=== PATIENT | male | born 1985 | race Caucasian/White ===

== ENCOUNTER 2022-02-21 16:27 | Inpatient (IN) ==
[2022-02-21] MEDS: Norepinephrine 4 MG/254 ML IV.SOLN IVC SCH (22:00)
[2022-02-21] MEDS ORDERED: Naloxone 0.4 MG/ML INJ IVP PRN (22:17)
[2022-02-21] MEDS ORDERED: Azithromycin 500 MG in 0.9 % Sodium Chloride 250 ML IVPB ONE (22:17)
[2022-02-21] MEDS ORDERED: *HR* Norepinephrine 4 MG/4 ML VIAL IVC ONE (22:24)
[2022-02-21] MEDS ORDERED: 0.9 % Sodium Chloride 250 ML ONE (22:25)
[2022-02-21] MEDS ORDERED: Vancomycin (wt based) 1,000 MG VIAL IVPB SCH (23:00)
[2022-02-21 23:12] LABS: Basophils % 0.1 %; Hematocrit 33.7 % (37.5-50.1); Hemoglobin 10.2 g/dL (12.9-16.9); Immature Granulocytes % 0.7 % (0-4); Lymphocytes # 0.7 K/mcL (0.6-4.6); Lymphocytes % 3.5 %; Mean Corpuscular HGB Conc 30.3 g/dL (31.6-35.5); Mean Corpuscular Hemoglobin 27.3 pg (28.0-33.3); Mean Corpuscular Volume 90.3 fL (83.0-100.0); Mean Platelet Volume 9.5 fL (9.4-12.4); Monocytes # 0.3 K/mcL (0.0-1.3); Monocytes % 1.7 %; Neutrophils # 17.5 K/mcL (1.6-8.9); Platelet Count 444 K/mcL (140-400); Red Blood Count 3.73 M/mcL (4.19-5.50); Red Cell Distribution Width 14.6 % (11.5-14.5); White Blood Count 18.6 K/mcL (4.3-11.1)
[2022-02-21 23:16] LABS: VBG Ionized Calcium 1.13 mmol/L (1.15-1.35)
[2022-02-21 23:19] LABS: INR 1.3; Prothrombin Time 14.8 Seconds (9.4-12.1)
[2022-02-21 23:22] LABS: Activated Partial Thrombo Time 31.4 Seconds (26.0-36.0)
[2022-02-21 23:32] LABS: Alanine Aminotransferase 23 Units/L (7-52); Albumin 2.3 g/dL (3.5-5.7); Albumin/Globulin Ratio 0.5 (1.1-2.2); Alkaline Phosphatase 70 Units/L (34-104); Aspartate Amino Transferase 26 Units/L (13-39); BUN/Creatinine Ratio 45 (6-26); Bilirubin,Total 0.3 mg/dL (0.3-1.0); Blood Urea Nitrogen 10 mg/dL (6-20); Calcium 8.1 mg/dL (8.6-10.3); Carbon Dioxide 32 mEq/L (23-29); Chloride 102 mEq/L (98-107); Globulin 4.6 g/dL (2.4-3.5); Glucose 134 mg/dL (70-105); Magnesium 1.8 mg/dL (1.6-2.6); Osmolality,Calculated 289 (280-300); Phosphorous 3.1 mg/dL (2.7-4.5); Potassium 3.1 mEq/L (3.5-5.1); Sodium 139 mEq/L (136-145); Total Protein 6.9 g/dL (6.4-8.9); eGFR For African Americans > 60 (> 60); eGFR For Non-African Americans > 60 (> 60)
[2022-02-21] MEDS ORDERED: Albuterol 2.5 MG/3 ML NEBULIZER IH PRN (23:59)
[2022-02-22] MEDS ORDERED: Potassium Chloride Elixir 20 MEQ/15 ML UDC GTUBE ONE (00:13)
[2022-02-22] MEDS: Norepinephrine 4 MG/254 ML IV.SOLN IVC SCH (00:59)
[2022-02-22] MEDS: Piperacillin/Tazobactam 3.375 GM in 0.9 % Sodium Chloride Mini Bag 100 ML IVPB SCH ×3 (02:00→16:11)
[2022-02-22] MEDS: *HR* Heparin 5,000 UNIT/ML VIAL SQ SCH ×2 (02:17→06:20)
[2022-02-22 04:03] LABS: VBG Ionized Calcium 1.22 mmol/L (1.15-1.35)
[2022-02-22 04:14] LABS: Basophils % 0.1 %; Hematocrit 35.1 % (37.5-50.1); Hemoglobin 10.6 g/dL (12.9-16.9); Immature Granulocytes % 0.8 % (0-4); Lymphocytes # 0.9 K/mcL (0.6-4.6); Mean Corpuscular HGB Conc 30.2 g/dL (31.6-35.5); Mean Corpuscular Hemoglobin 27.7 pg (28.0-33.3); Mean Corpuscular Volume 91.9 fL (83.0-100.0); Mean Platelet Volume 9.7 fL (9.4-12.4); Monocytes # 0.5 K/mcL (0.0-1.3); Monocytes % 2.7 %; Neutrophils # 15.7 K/mcL (1.6-8.9); Platelet Count 438 K/mcL (140-400); Red Blood Count 3.82 M/mcL (4.19-5.50); Red Cell Distribution Width 14.6 % (11.5-14.5); Segmented Neutrophils % 91.4 %; White Blood Count 17.2 K/mcL (4.3-11.1)
[2022-02-22 05:00] LABS: Blood Urea Nitrogen 10 mg/dL (6-20); Carbon Dioxide 32 mEq/L (23-29); Chloride 105 mEq/L (98-107); Glucose 133 mg/dL (70-105); Magnesium 1.8 mg/dL (1.6-2.6); Osmolality,Calculated 293 (280-300); Phosphorous 3.2 mg/dL (2.7-4.5); Potassium 3.9 mEq/L (3.5-5.1); Sodium 141 mEq/L (136-145)
[2022-02-22] MEDS ORDERED: Ipratropium/Albuterol Neb 3 ML IH PRN (07:38)
[2022-02-22] MEDS: Pantoprazole 40 MG VIAL IVP SCH (08:05)
[2022-02-22] MEDS: polyethylene glycoL 3350 17 GM POWD.PACK PO SCH (08:08)
[2022-02-22] MEDS ORDERED: Remdesivir 200 MG in 0.9 % Sodium Chloride 100 ML IVPB ONE (09:03)
[2022-02-22 09:14] LABS: Bilirubin,Urine Negative (Negative); Blood,Urine Negative (Negative); Clarity,Urine Clear (Clear); Color,Urine Yellow (Yellow); Glucose,Urine (UA) Normal (Normal); Ketones,Urine Negative (Negative); Leukocyte Esterase,Urine Negative (Negative); Nitrite,Urine Negative (Negative); Protein,Urine Trace mg/dL (Neg-Trace); Specific Gravity,Urine 1.026 (1.010-1.025); Urobilinogen,Urine Normal (Normal)
[2022-02-22 10:06] LABS: C-Reactive Protein 150 mg/L (Less than 10)
[2022-02-22] MEDS ORDERED: Lidocaine Viscous Oral Soln 15 ML SOLUTION ONE (10:25)
[2022-02-22] MEDS ORDERED: Iopamidol - 370 500 ML MLS IVP ONE ×2 (12:03→14:53)
[2022-02-22] MEDS ORDERED: *HR* Enoxaparin 40 MG/0.4 ML SYRINGE SQ SCH ×2 (14:00→18:00)
[2022-02-22 14:39] LABS: Source of Body Fluid RLL
[2022-02-22 17:18] LABS: Appearance of Body Fluid Cloudy (Clear); Volume of Body Fluid 15 mL
[2022-02-23] MEDS ORDERED: *HR* Heparin 5,000 UNIT/ML VIAL IVP PRN ×2 (02:00)
[2022-02-23] MEDS ORDERED: *HR* Heparin 5,000 UNIT/ML VIAL IVP ONE (02:00)
[2022-02-23] MEDS: Heparin 25,000UNIT/250ML 1/2NS 25,000 UNIT/250 ML IV.SOLN IVC SCH (02:30)
[2022-02-23] MEDS: Piperacillin/Tazobactam 3.375 GM in 0.9 % Sodium Chloride Mini Bag 100 ML IVPB SCH ×4 (02:41→23:02)
[2022-02-23] MEDS: Norepinephrine 4 MG/254 ML IV.SOLN IVC SCH ×2 (02:42→20:19)
[2022-02-23 02:49] LABS: Hematocrit 34.8 % (37.5-50.1); Hemoglobin 10.4 g/dL (12.9-16.9); Mean Corpuscular HGB Conc 29.9 g/dL (31.6-35.5); Mean Corpuscular Hemoglobin 27.2 pg (28.0-33.3); Mean Corpuscular Volume 91.1 fL (83.0-100.0); Mean Platelet Volume 9.5 fL (9.4-12.4); Platelet Count 445 K/mcL (140-400); Red Blood Count 3.82 M/mcL (4.19-5.50); White Blood Count 11.7 K/mcL (4.3-11.1)
[2022-02-23 02:56] LABS: Heparin anti-factor XA UFH < 0.04 IU/mL (0.30-0.70); INR 1.2; Prothrombin Time 13.5 Seconds (9.4-12.1)
[2022-02-23 02:59] LABS: Activated Partial Thrombo Time 31.1 Seconds (26.0-36.0)
[2022-02-23 03:05] LABS: Alanine Aminotransferase 20 Units/L (7-52); Albumin 2.2 g/dL (3.5-5.7); Albumin/Globulin Ratio 0.5 (1.1-2.2); Alkaline Phosphatase 62 Units/L (34-104); Aspartate Amino Transferase 24 Units/L (13-39); BUN/Creatinine Ratio 56 (6-26); Bilirubin,Indirect 0.2 mg/dL (0.0-1.0); Bilirubin,Total 0.2 mg/dL (0.3-1.0); Blood Urea Nitrogen 14 mg/dL (6-20); Calcium 8.4 mg/dL (8.6-10.3); Carbon Dioxide 33 mEq/L (23-29); Chloride 109 mEq/L (98-107); Globulin 4.2 g/dL (2.4-3.5); Glucose 101 mg/dL (70-105); Osmolality,Calculated 307 (280-300); Potassium 3.5 mEq/L (3.5-5.1); Sodium 148 mEq/L (136-145); Total Protein 6.4 g/dL (6.4-8.9); eGFR For African Americans > 60 (> 60); eGFR For Non-African Americans > 60 (> 60)
[2022-02-23 03:21] LABS: Basophils % 0.1 %; Immature Granulocytes % 2.5 % (0-4); Lymphocytes % 16.5 %; Monocytes # 0.7 K/mcL (0.0-1.3); Monocytes % 5.6 %; Neutrophils # 8.9 K/mcL (1.6-8.9); Segmented Neutrophils % 75.3 %
[2022-02-23 03:30] LABS: Magnesium 1.9 mg/dL (1.6-2.6); Phosphorous 3.3 mg/dL (2.7-4.5)
[2022-02-23 03:48] LABS: Ferritin 1253 ng/mL (20-250)
[2022-02-23 04:17] LABS: D-Dimer 14544 ng/mLFEU (0-500)
[2022-02-23 05:30] LABS: VBG Ionized Calcium 1.19 mmol/L (1.15-1.35)
[2022-02-23] MEDS ORDERED: *HR* Enoxaparin 40 MG/0.4 ML SYRINGE SQ SCH (06:00)
[2022-02-23] MEDS: Pantoprazole 40 MG VIAL IVP SCH (07:29)
[2022-02-23] MEDS: Chlorhexidine Rinse 15 ML MOUTHWASH MM SCH ×2 (08:49→20:15)
[2022-02-23] MEDS ORDERED: Potassium Chloride Elixir 20 MEQ/15 ML UDC GTUBE ONE (10:25)
[2022-02-23] MEDS: polyethylene glycoL 3350 17 GM POWD.PACK PO SCH (10:36)
[2022-02-23] MEDS: Remdesivir 100 MG in 0.9 % Sodium Chloride 100 ML IVPB SCH (10:36)
[2022-02-23 11:35] LABS: LDH,Pleural Fluid > 1200 Units/L (No Ref Range); Total Protein,Pleural Fluid < 2.0 g/dL
[2022-02-23] MEDS: predniSONE 10 MG TABLET GTUBE SCH (13:49)
[2022-02-23 14:26] LABS: Appearance of Body Fluid Cloudy (Clear); Volume of Body Fluid 21 mL
[2022-02-23 18:19] LABS: BUN/Creatinine Ratio 48 (6-26); Blood Urea Nitrogen 14 mg/dL (6-20); Carbon Dioxide 33 mEq/L (23-29); Chloride 110 mEq/L (98-107); Glucose 179 mg/dL (70-105); Osmolality,Calculated 309 (280-300); Potassium 3.7 mEq/L (3.5-5.1); Sodium 147 mEq/L (136-145); eGFR For African Americans > 60 (> 60); eGFR For Non-African Americans > 60 (> 60)
[2022-02-23] MEDS: Ketoconazole 2% CRM 15 GM TUBE TP SCH (20:18)
[2022-02-23] MEDS: Nystatin POWDER 30 GM BOTTLE TP SCH (20:18)
[2022-02-24] MEDS ORDERED: D5% in Water 1,000 ML IVC PRN (00:30)
[2022-02-24] MEDS ORDERED: *HR* Dextrose 50 % in Water (Syg) 50 ML SYRINGE IVP PRN (00:30)
[2022-02-24] MEDS ORDERED: Dextrose Gel 15 GM/37.5 ML TUBE PO PRN ×2 (00:30)
[2022-02-24 04:39] LABS: Basophils % 0.2 %; Hematocrit 34.1 % (37.5-50.1); Hemoglobin 9.9 g/dL (12.9-16.9); Immature Granulocytes % 5.8 % (0-4); Lymphocytes % 15.2 %; Mean Corpuscular Hemoglobin 27.1 pg (28.0-33.3); Mean Corpuscular Volume 93.4 fL (83.0-100.0); Mean Platelet Volume 9.7 fL (9.4-12.4); Monocytes # 0.7 K/mcL (0.0-1.3); Monocytes % 6.6 %; Neutrophils # 7.8 K/mcL (1.6-8.9); Nucleated Red Blood Cells 0.2 /100 WBC (0); Platelet Count 361 K/mcL (140-400); Red Blood Count 3.65 M/mcL (4.19-5.50); Red Cell Distribution Width 15.2 % (11.5-14.5); Segmented Neutrophils % 72.2 %; White Blood Count 10.8 K/mcL (4.3-11.1)
[2022-02-24 04:50] LABS: Lymphocytes # 1.6 K/mcL (0.6-4.6)
[2022-02-24 04:59] LABS: Alanine Aminotransferase 18 Units/L (7-52); Albumin 2.2 g/dL (3.5-5.7); Albumin/Globulin Ratio 0.5 (1.1-2.2); Alkaline Phosphatase 60 Units/L (34-104); Aspartate Amino Transferase 23 Units/L (13-39); BUN/Creatinine Ratio 64 (6-26); Bilirubin,Indirect 0.2 mg/dL (0.0-1.0); Bilirubin,Total 0.2 mg/dL (0.3-1.0); Blood Urea Nitrogen 16 mg/dL (6-20); C-Reactive Protein 35 mg/L (Less than 10); Carbon Dioxide 36 mEq/L (23-29); Chloride 109 mEq/L (98-107); Globulin 4.1 g/dL (2.4-3.5); Glucose 186 mg/dL (70-105); Osmolality,Calculated 310 (280-300); Potassium 4.2 mEq/L (3.5-5.1); Sodium 147 mEq/L (136-145); Total Protein 6.3 g/dL (6.4-8.9); eGFR For African Americans > 60 (> 60); eGFR For Non-African Americans > 60 (> 60)
[2022-02-24] MEDS ORDERED: Insulin LISPRO 300 UNITS/3 ML VIAL SUBQ SCH (06:00)
[2022-02-24] MEDS: Piperacillin/Tazobactam 3.375 GM in 0.9 % Sodium Chloride Mini Bag 100 ML IVPB SCH ×3 (07:24→23:58)
[2022-02-24] MEDS: polyethylene glycoL 3350 17 GM POWD.PACK PO SCH (07:24)
[2022-02-24] MEDS: Chlorhexidine Rinse 15 ML MOUTHWASH MM SCH ×2 (07:24→20:50)
[2022-02-24] MEDS: predniSONE 10 MG TABLET GTUBE SCH (07:25)
[2022-02-24] MEDS: Pantoprazole 40 MG VIAL IVP SCH (07:25)
[2022-02-24] MEDS: Nystatin POWDER 30 GM BOTTLE TP SCH ×2 (07:29→20:50)
[2022-02-24] MEDS: Ketoconazole 2% CRM 15 GM TUBE TP SCH ×2 (07:29→20:50)
[2022-02-24] MEDS: Remdesivir 100 MG in 0.9 % Sodium Chloride 100 ML IVPB SCH (10:04)
[2022-02-24] MEDS: Insulin LISPRO 300 UNITS/3 ML VIAL SUBQ SCH ×4 (11:55→20:51)
[2022-02-24] MEDS: Lactulose Oral Soln 20 GM/30 ML UDC GTUBE SCH (16:11)
[2022-02-24] MEDS: Heparin 25,000UNIT/250ML 1/2NS 25,000 UNIT/250 ML IV.SOLN IVC SCH (18:13)
[2022-02-24] MEDS: Docusate Oral Soln 100 MG/10 ML UDC GTUBE SCH (20:49)
[2022-02-25] MEDS: Insulin LISPRO 300 UNITS/3 ML VIAL SUBQ SCH ×4 (00:18→12:42)
[2022-02-25 04:18] LABS: VBG Ionized Calcium 1.15 mmol/L (1.15-1.35)
[2022-02-25 04:18] LABS: Basophils % 0.1 %; Hematocrit 35.2 % (37.5-50.1); Immature Granulocytes % 3.3 % (0-4); Lymphocytes % 16.2 %; Mean Corpuscular HGB Conc 28.4 g/dL (31.6-35.5); Mean Corpuscular Hemoglobin 27.2 pg (28.0-33.3); Mean Corpuscular Volume 95.7 fL (83.0-100.0); Mean Platelet Volume 9.9 fL (9.4-12.4); Monocytes # 0.6 K/mcL (0.0-1.3); Neutrophils # 9.1 K/mcL (1.6-8.9); Nucleated Red Blood Cells 0.2 /100 WBC (0); Platelet Count 325 K/mcL (140-400); Red Blood Count 3.68 M/mcL (4.19-5.50); Red Cell Distribution Width 14.9 % (11.5-14.5); Segmented Neutrophils % 75.4 %
[2022-02-25 04:20] LABS: Lymphocytes # 1.9 K/mcL (0.6-4.6)
[2022-02-25 04:38] LABS: Alanine Aminotransferase 18 Units/L (7-52); Albumin 2.1 g/dL (3.5-5.7); Albumin/Globulin Ratio 0.5 (1.1-2.2); Alkaline Phosphatase 58 Units/L (34-104); Aspartate Amino Transferase 21 Units/L (13-39); BUN/Creatinine Ratio 60 (6-26); Bilirubin,Indirect 0.2 mg/dL (0.0-1.0); Bilirubin,Total 0.2 mg/dL (0.3-1.0); Blood Urea Nitrogen 12 mg/dL (6-20); C-Reactive Protein 19 mg/L (Less than 10); Calcium 7.7 mg/dL (8.6-10.3); Carbon Dioxide 40 mEq/L (23-29); Chloride 102 mEq/L (98-107); Globulin 3.9 g/dL (2.4-3.5); Glucose 124 mg/dL (70-105); Osmolality,Calculated 293 (280-300); Phosphorous 2.6 mg/dL (2.7-4.5); Potassium 3.8 mEq/L (3.5-5.1); Sodium 141 mEq/L (136-145); eGFR For African Americans > 60 (> 60); eGFR For Non-African Americans > 60 (> 60)
[2022-02-25 04:42] LABS: Hypochromasia Present (Not Present); Platelet Estimate Normal (Normal); Stomatocytes 1+ (Not Present)
[2022-02-25] MEDS: Norepinephrine 4 MG/254 ML IV.SOLN IVC SCH (04:59)
[2022-02-25] MEDS: Piperacillin/Tazobactam 3.375 GM in 0.9 % Sodium Chloride Mini Bag 100 ML IVPB SCH (08:13)
[2022-02-25] MEDS: Lactulose Oral Soln 20 GM/30 ML UDC GTUBE SCH (08:15)
[2022-02-25] MEDS: Chlorhexidine Rinse 15 ML MOUTHWASH MM SCH (08:15)
[2022-02-25] MEDS: Docusate Oral Soln 100 MG/10 ML UDC GTUBE SCH (08:15)
[2022-02-25] MEDS: Pantoprazole 40 MG VIAL IVP SCH (08:15)
[2022-02-25] MEDS: polyethylene glycoL 3350 17 GM POWD.PACK PO SCH (08:16)
[2022-02-25] MEDS: predniSONE 10 MG TABLET GTUBE SCH (08:16)
[2022-02-25] MEDS: Ketoconazole 2% CRM 15 GM TUBE TP SCH (08:17)
[2022-02-25] MEDS: Nystatin POWDER 30 GM BOTTLE TP SCH (08:17)
[2022-02-25] MEDS: Remdesivir 100 MG in 0.9 % Sodium Chloride 100 ML IVPB SCH (09:39)
[2022-02-25] MEDS ORDERED: Potassium Phosphate 44 MEQ in 0.9 % Sodium Chloride 250 ML IVPB PRN (09:40)
[2022-02-25] MEDS ORDERED: Calcium Gluconate 1gm/50mL 1 GM/50 ML BAG IVPB PRN (09:40)
[2022-02-25] MEDS ORDERED: Potassium Chloride 40 MEQ/200 ML BAG IVPB PRN (09:40)
[2022-02-25] MEDS ORDERED: Meropenem 1,000 MG in 0.9 % Sodium Chloride Mini Bag 100 ML IVPB SCH (12:00)
[2022-02-25 12:42] VITALS: TEMP 98.5
[2022-02-25 12:47] LABS: VBG HCO3 36 mEq/L (21-27); VBG PCO2 67 mmHg (41-51); VBG PH 7.34 pH Units (7.32-7.42); VBG PO2 120 mmHg (25-50)
[2022-02-25 13:31] VITALS: O2SAT 100
[2022-02-25 14:01] VITALS: BP 108/85; PULSE 114
== END 2022-02-25 14:49 | disposition short-term general hospital (02) | DRG 871 ==
LOC: EDBD → ICNU 22:07
PROVIDERS: ADMIT Pediatrics; ATTEND Pediatrics